=== PATIENT | female | born 1970 | race Caucasian/White ===

== ENCOUNTER 2017-09-03 12:49 | Inpatient (IN) ==
--- NOTE | 2017-09-03 13:09 | Anesthesia Evaluation PreOp ---
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 Other Medical History: Thyroid (hypo), Other (obesity) Anesthesia History: No Prior Anesthetic Complications, Past Anesthesia (appy, thyroid,laparotomy, lumbar microdisc, brian, hernia, left partial knee) Alcohol Use: none Drug use: none Medications and Allergies Albuterol Sulfate [Albuterol Inhaler] 2 puff IH Q4HR PRN 03/19/15 [History] Amlodipine [Norvasc] 10 mg PO DAILY 03/19/15 [History] Aspirin 325 mg PO DAILY 03/19/15 [History] CloNIDine HCl 0.1 mg PO TID PRN 03/19/15 [History] HydrOXYzine 25 mg PO TID PRN 03/19/15 [History] Levothyroxine [Synthroid] 125 mcg PO DAILY 03/19/15 [History] Losartan/Hydrochlorothiazide [Hyzaar 100-25 Tablet] 1 each PO DAILY 03/19/15 [ History] Metoprolol XL (24 HR) Succ [Toprol Xl] 100 mg PO DAILY 03/19/15 [History] Nitroglycerin 0.4 mg SL Q5MIN PRN 03/19/15 [History] Potassium Chloride 20 meq PO DAILY 03/19/15 [History] Sertraline [Zoloft] 100 mg PO DAILY 03/19/15 [History] Fluticasone Propionate Nasal [Flonase] 50 mcg NS DAILY 10/15/15 [History] Atorvastatin [Lipitor] 40 mg PO DAILY 02/20/16 [History] Furosemide [Lasix] 20 mg PO DAILY PRN 02/20/16 [History] Loperamide [Imodium] 2 mg PO Q6H PRN 02/20/16 [History] Medroxyprogesterone Acetate [Depo-Provera] 150 mg IM Q3M 02/20/16 [History] Meloxicam [Mobic] 15 mg PO DAILY 02/20/16 [History] Triamterene/HCTZ 37.5/25mg [Dyazide] 1 each PO DAILY 02/20/16 [History] HYDROcodone/Acet 5/325 mg [[place] 5-325 mg] 1 tab PO Q4HR PRN #60 tablet [Rx] 3 Allergy/AdvReac Type Severity Reaction Status Date / Time Sulfa (Sulfonamide Allergy Intermediate Hives Verified 08/31/17 10:07 Antibiotics) promethazine [From Phenergan] AdvReac Severe Vomiting Verified 08/31/17 10:07 Cefaclor [From Ceclor] AdvReac Mild Hives Verified 08/31/17 10:07 Oxycodone AdvReac Hallucinati Verified 08/31/17 10:07 ng - Meds/Allergy Pre-op Review Medications Reviewed: Yes Allergies Reviewed: Yes Beta Blockers on Current Med List: No Anesthesia Results - Imaging EKG: report reviewed (SINUS RHYTHM MODERATE T-WAVE ABNORMALITY, CONSIDER LATERAL ISCHEMIA) Additional studies: mpression: Pharmacologic stress ECG is non diagnostic for ischemia due to failure to reach target heartrate. However, there were diffuse T wave inversions noted during stress and mild ST segment depression in the inferior leads during recovery. Gated EF = 58%. Perfusion imaging was negative for ischemia or infarct. Anesthesia Exam Weight: 96kg BMI 35 NPO (# of Hours): 8 - HEENT Pupil (Motor): EOMI Mallampati: II Teeth: Edentulous Oral Opening: Greater than 3 - GENERATOR WORKER LOC: Oriented GENERATOR WORKER Motor: Normal RUE, Normal LUE, Normal RLE, Normal LLE, Normal Face GENERATOR WORKER Sensory: Normal: RUE, LUE, RLE, LLE, Face - Cardiac Rhythm: Regular Murmur: None - Pulmonary Breath Sounds: bilateral Clear Respiratory Effort: Symmetrical Anesthesia Assess/Plan ASA Score: 2 Modified Jose Scale for Level of Consciousness: Cooperative, oriented, and tranquil Anesthetic Plan: Regional, MAC Monitoring Plan: Standard Monitors Recovery Plan: PACU (agrees to SAB with MAC and block)
[2017-09-03] MEDS ORDERED: CeFAZolin Syr 2,000MG/20 ML 2,000 MG/20 ML SYRINGE IVPB ONE (13:29)
[2017-09-03] MEDS ORDERED: Plasma-Lyte A (PH 7.4) 1,000 ML IVC SCH (13:30)
--- NOTE | 2017-09-03 13:36 | History & Physical Report ---
Date of Encounter: 09/03/17 Time of Encounter: 13:35 24 Hour HP Update - Instructions Instructions: If the History and Physical is less than 30 days old and was completed prior to A.M. admission and or procedure and has NOT been updated on calendar day of procedure please complete this update prior to performing procedure. - Update Patient reports changes in Medical Condition: No Changes in examination, assessment, or condition: No Changes in Medication: No Preop tests/diagnostics Reviewed: Yes Surgery Remains Indicated: Yes Consent for Planned Operative Procedure(s) Verified: Yes - Pre-Operative Checklist Preoperative Checklist Indicated: No Prophylactic Antibiotic Ordered: Yes Is VTE Prophylaxis Indicated?: Yes
[2017-09-03] MEDS ORDERED: *HR* Ropivacaine/PF 0.5% 20 ML VIAL ONE (13:50)
[2017-09-03] MEDS ORDERED: Ethanol\\Acetic Acid\\Na Ace\\Ben 1,000 ML IRRIG.SOLN IR ONE (14:00)
[2017-09-03] MEDS ORDERED: Propofol 500 MG/50 ML INFUS..BTL ONE (14:05)
[2017-09-03] MEDS ORDERED: *HR* Morphine Sulfate/PF 10 MG/10 ML AMPUL ONE (14:07)
[2017-09-03] MEDS ORDERED: *HR* FentaNYL (PF) 100 MCG/2 ML VIAL ONE ×2 (14:40)
[2017-09-03] MEDS ORDERED: *HR* EPINEPHrine 1 MG/ML AMPUL ONE (14:40)
[2017-09-03] MEDS ORDERED: *HR* Midazolam HCl 2 MG/2 ML VIAL ONE (14:40)
--- NOTE | 2017-09-03 14:49 | Anesthesia Procedures ---
Date of Encounter: 09/03/17 Time of Encounter: 14:46 Procedures: Anesthesia - Nerve Block Procedure Date: 09/03/17 Time: 14:00 Allergies/Adv Reactions: sulfa antibiotics, promethazine, cefaclor, oxycodone Pre-op Diagnosis: L knee arthritis Surgical Procedure: L TKA, revision from unicondylar to total Checklist: Correct Patient Identifier, Correct procedure, History checked Correct side: Left Blood Thinner: No Monitor Applied: EKG, BP, Pulse Oximetry Supplemental Oxygen via Nasal Cannula (L/min): 3 Sedation: Versed (mg): 2 Sedation: Fentanyl (mcg): 100 Indication: Post Op Analgesia Pre-op Neuro Deficits: No Block Type: Femoral Catheter placed: No Sterile Technique: Yes Ultrasound used: Yes Anatomy identified: Yes Visual spread of Local: Yes Neuro Stimulation: Yes Nerve Stimulator Range: 0.2 - 0.4 mA Blood on Needle Aspiration: No Smooth Injection of Local: Yes Pain with Injection of Local: No Prep: Chlorhexadine Needle: 21 x 100 mm Stimuplex Local: Ropivacaine (30mL of 0.5% ropivicaine + 8mg dexamethasone) Number of Attempts: 1 Complications: None/effective block Vitals: please see Mariana BROWN's electronic records for VS entry
--- NOTE | 2017-09-03 14:49 | Discharge Summary ---
Date of Encounter: 09/04/17 Time of Encounter: 06:40 - Discharge Diagnosis (1) Asthma Priority: Secondary Status: Chronic Qualifiers: Asthma severity: unspecified severity Asthma persistence: unspecified Asthma complication type: unspecified Qualified Code(s): J45.909 - Unspecified asthma, uncomplicated (2) Hyperlipidemia Priority: Secondary Status: Chronic Qualifiers: Hyperlipidemia type: unspecified Qualified Code(s): E78.5 - Hyperlipidemia , unspecified (3) Painful orthopaedic hardware Priority: Primary Status: Chronic (4) Status post revision of total replacement of left knee Priority: Primary Status: Acute (5) Hypertension Priority: Secondary Status: Chronic Qualifiers: Hypertension type: unspecified Qualified Code(s): I10 - Essential (primary ) hypertension - Discharge Medications Home Medications: Albuterol Sulfate [Albuterol Inhaler] 2 puff IH Q4HR PRN 03/19/15 [History] Aspirin 325 mg PO DAILY 03/19/15 [History] CloNIDine HCl 0.1 mg PO TID PRN 03/19/15 [History] HydrOXYzine 25 mg PO TID PRN 03/19/15 [History] Levothyroxine [Synthroid] 125 mcg PO DAILY 03/19/15 [History] Losartan/Hydrochlorothiazide [Hyzaar 100-25 Tablet] 1 each PO DAILY 03/19/15 [ History] Nitroglycerin 0.4 mg SL Q5MIN PRN 03/19/15 [History] Potassium Chloride 20 meq PO DAILY 03/19/15 [History] Sertraline [Zoloft] 100 mg PO DAILY 03/19/15 [History] Fluticasone Propionate Nasal [Flonase] 50 mcg NS DAILY 10/15/15 [History] Atorvastatin [Lipitor] 40 mg PO DAILY 02/20/16 [History] Furosemide [Lasix] 20 mg PO DAILY PRN 02/20/16 [History] Loperamide [Imodium] 2 mg PO Q6H PRN 02/20/16 [History] Medroxyprogesterone Acetate [Depo-Provera] 150 mg IM Q3M 02/20/16 [History] Triamterene/HCTZ 37.5/25mg [Dyazide] 1 each PO DAILY 02/20/16 [History] Amlodipine Besylate 10 mg PO DAILY 09/03/17 [History] Aspirin Enteric Coated [Aspirin EC] 325 mg PO BID #20 tablet. 09/03/17 [Rx] CloNIDine Patch [Catapres-Tts] 0.1 mg TD TH 09/03/17 [History] Fesoterodine Fumarate [Toviaz] 8 mg PO DAILY 09/03/17 [History] HYDROcodone/Acet 5/325 mg [[place] 5-325 mg] 1 tab PO Q6H PRN 5 Days #20 tab 09/03 [Rx] Loratadine [Allergy Relief] 10 mg PO DAILY 09/03/17 [History] Metoprolol Succinate [Toprol Xl] 100 mg PO DAILY 09/03/17 [History] Montelukast [Singulair] 10 mg PO HS 09/03/17 [History] Naproxen [Naprosyn] 500 mg PO Q12H 09/03/17 [History] Oxybutynin Chloride [Ditropan Xl] 15 mg PO DAILY 09/03/17 [History] SUMAtriptan Succinate [Imitrex] 100 mg PO Q2H PRN 09/03/17 [History] Allergies/Adverse Reactions: 3 Allergy/AdvReac Type Severity Reaction Status Date / Time Sulfa (Sulfonamide Allergy Intermediate Hives Verified 08/31/17 10:07 Antibiotics) promethazine [From Phenergan] AdvReac Severe Vomiting Verified 08/31/17 10:07 Cefaclor [From Ceclor] AdvReac Mild Hives Verified 08/31/17 10:07 Oxycodone AdvReac Hallucinati Verified 08/31/17 10:07 ng Primary care physician: Iram Maldonado - Patient Status Disposition: Home, Self-Care Condition: Good Functional capacity at discharge: uses cane/walker Overall status at discharge: patient is progressing back to baseline - Discharge Instructions Follow Up With: Iram Maldonado MD [Primary Care Provider] - 10/20/17 1:00 pm - Hospital Course Hospital course: Ms. Contreras is a 47 year old female post revision left total knee The patient had an uneventful postoperative course. They received antibiotics and physical therapy and were discharged in stable condition. There will follow -up in the office in 2 weeks. - Time Spent with Patient Total time spent providing and/or coordinating discharge services:
--- NOTE | 2017-09-03 14:54 | Anesthesia Procedures ---
Date of Encounter: 09/03/17 Time of Encounter: 14:52 Procedures: Anesthesia - Epidural/Spinal Patient ID/Chart reviewed: Yes Patient examined: Yes Consent Obtained: Yes Supplemental Oxygen: None/Room Air Site Prep: Aseptic Technique, Sterile prep and drape, Povidone-Iodine 1% Patient position: upright Local Anesthetic: Lidocaine 1% (0.2mL ID injection) Interspace Used: L3-L4 Loss of Resistance (NEHEMIAH): No Blood: No CSF: Yes Paresthesia: Yes (transient RLE) Spinal Needle Gauge: 25 (3.5G pencan needle) Spinal Dose: 250mcg PF morphine + 15mcg fentanyl + 1.4mL 0.75% Procedure: successful x 1 attempt Vitals + FHT's: please see Mariana BROWN's electronic records for VS entry
[2017-09-03] MEDS ORDERED: Naloxone 0.4 MG/ML INJ IVP PRN ×2 (14:57→16:54)
[2017-09-03] MEDS ORDERED: Ondansetron 4 MG/2 ML VIAL ONE (15:13)
--- NOTE | 2017-09-03 15:50 | Orthopedic Operative Note ---
Date of procedure: 09/03/17 Pre-op diagnosis: Left knee arthritis painful unicondylar Post-op diagnosis: same Procedure: Procedure: Left Removal of unicondylar knee replacement right revision total knee replacement Estimated blood loss: 200 cc Hardware: Arthrex metal and plastic replacement: Femur 3, tibia: 4, poly-: PS 13 , patella: 34 Exam Under anesthesia: Full range of motion and no gross instability. Procedural Notes: Grade 4 arthritic changes patellofemoral joint grade 3 lateral compartment. Operative procedure: The patient was brought to the operating room and placed on the operating room table. After general anesthesia was administered the operative knee was examined. Findings were noted in the exam under anesthesia. The operative extremity was prepped and draped in sterile surgical fashion. The patient received IV antibiotics prior to skin incision. A standard midline incision was made centered over the patella. The incision was made through the skin and subcutaneous tissue. It incorporated the old incision. A medial parapatellar tendon approach was performed. Care was taken to preserve tissue along the medial aspect of the patella. And to protect the patella tendon. The deep MCL was released off the medial tibia. The infra patella fat pad was excised. Cultures were obtained. The knee was brought into flexion patient does have grade 3 changes lateral compartment grade 4 changes patellofemoral joint, the poly-was removed, the interface between the patient's femoral component and distal femur were disrupted with a osteotome and oscillating saw. Femoral component was removed removed without significant bone loss. Attention was then turned to the tibial component. The same technique was used to remove the tibial component by disrupting the interface between the patient's tibial component and the patients proximal tibia. The entry holes made for intramedullary femoral guide guide was seated in 5 degrees of valgus distal cut was made. ACL PCL lateral meniscus were removed and the entry hole was made for the intramedullary tibial guide guide was seated to resect at the level of the medial cut. The knee was brought into flexion femur sized to a size 3 cutting guide was seated anterior cut was made followed by the posterior condylar cuts followed by chamfer cuts. The finishing block was seated box cut was made lug holes drilled. Tibia was subluxed out sized to a size 4 for tray was seated in appropriate position prepared with the large drill followed by the fin cutter trial reduction revealed full extension no varus valgus instability with a 13 PS [place]. The patella was everted patella cut was made all the insertions of the quadriceps and patella tendon patella sized to 34, 34 guide was seated lug holes are drilled. The trial components were removed. The knee is irrigated with pulse irrigation. Sat for 1 minute with an antibacterial solution. Tibia cemented first followed by the femur the #16 PS [place] was seated and secured used for into extension patella was cemented and held in place with patellar holding clamp. After the cement hardened the knee was irrigated out again after it sat for 1 minute with an antibacterial solution. The extensor mechanism was closed with a running #2 Fiberwire suture and a running #2 PDS suture. The deep tissue was irrigated and closed deep with #1 PDS suture superficially with 0 PDS suture. The skin was closed with skin carlos. The patient was placed in a sterile dressing and postoperative brace. They were extubated and transferred to recovery room in stable condition. Anesthesia: spinal Surgeon: Ramesh Ochoa Was there an operator/assistant foreman present: No Estimated blood loss (cc): 200 Condition: stable Disposition: PACU
[2017-09-03 16:23] LABS: Hematocrit 37.8 % (35.3-44.9); Hemoglobin 12.1 g/dL (11.5-15.4)
--- NOTE | 2017-09-03 16:52 | Anesthesia Evaluation Post Op ---
Date of Encounter: 09/03/17 Time of Encounter: 16:52 - Vital Signs Vital Signs: Last Vital Signs Temp 96.5 F L 09/03/17 16:42 Pulse 65 09/03/17 16:42 Resp 18 09/03/17 16:42 BP 128/95 09/03/17 16:42 Pulse Ox 98 09/03/17 16:42 - Lungs Lungs: Clear Ascult./Percussion - Airway Airway: Non-obstructed - Cardiovascular Regular Rate - Mental Status Mental Status: Alert & Oriented, Answers Appropriately - Pain Pain Scale: 1 - Nausea Vomiting Nausea Vomiting: Not Present - Hydration Hydration: Ice chips - Discharge PostOp Status: Transfer Patient to floor
[2017-09-03] MEDS ORDERED: SUMAtriptan succinate 50 MG TABLET PO PRN (16:54)
[2017-09-03] MEDS ORDERED: Ringers Solution, Lactated 1,000 ML IVC SCH (16:54)
[2017-09-03] MEDS ORDERED: Ondansetron 4 MG/2 ML VIAL IVP PRN (16:54)
[2017-09-03] MEDS ORDERED: MOM Conc 10 ML UD.LIQ PO PRN (16:54)
[2017-09-03] MEDS ORDERED: Sennosides 8.6 MG TABLET PO PRN (16:54)
[2017-09-03] MEDS ORDERED: CloNIDine Patch 0.1 MG PATCH (WEEKLY) TD SCH (16:54)
[2017-09-03] MEDS ORDERED: Temazepam 15 MG CAPSULE PO PRN (16:54)
[2017-09-03] MEDS ORDERED: hydrOXYzine pamoate 25 MG CAPSULE PO PRN (16:54)
[2017-09-03] MEDS ORDERED: cloNIDine HCl 0.1 MG TABLET PO PRN (16:54)
[2017-09-03] MEDS ORDERED: Nitroglycerin 0.4 MG TAB.SUBL SL PRN (16:54)
[2017-09-03] MEDS ORDERED: Furosemide 20 MG TABLET PO PRN (16:54)
[2017-09-03] MEDS ORDERED: Ibuprofen 400 MG TABLET PO PRN (17:26)
[2017-09-03] MEDS: *HR* Enoxaparin 30 MG/0.3 ML SYRINGE SQ SCH (17:59)
[2017-09-03] MEDS ORDERED: *HR* Enoxaparin 30 MG/0.3 ML SYRINGE SQ SCH (18:00)
[2017-09-03] MEDS: CeFAZolin Premix DUPLEX 2,000 MG/50 ML BAG IVPB SCH (22:32)
[2017-09-04 04:14] LABS: Hematocrit 34.7 % (35.3-44.9); Hemoglobin 11.5 g/dL (11.5-15.4)
[2017-09-04 04:47] LABS: BUN/Creatinine Ratio 18 (6-26); Blood Urea Nitrogen 14 mg/dL (6-20); Calcium 8.6 mg/dL (8.6-10.3); Carbon Dioxide 25 mEq/L (23-29); Chloride 105 mEq/L (98-107); Glucose 153 mg/dL (70-105); Osmolality,Calculated 286 (280-300); Potassium 4.3 mEq/L (3.5-5.1); Sodium 136 mEq/L (136-145); eGFR For African Americans > 60 (> 60); eGFR For Non-African Americans > 60 (> 60)
[2017-09-04] MEDS: CeFAZolin Premix DUPLEX 2,000 MG/50 ML BAG IVPB SCH (06:11)
[2017-09-04] MEDS: *HR* Enoxaparin 30 MG/0.3 ML SYRINGE SQ SCH (06:11)
[2017-09-04] MEDS ORDERED: Levothyroxine Sodium 125 MCG TABLET PO SCH (06:30)
--- NOTE | 2017-09-04 06:42 | Orthopedics Progress Note ---
Date of Encounter: 09/04/17 Time of Encounter: 06:41 - Assessment and Plan (1) Asthma Current Visit: Yes Status: Chronic Qualifiers: Asthma severity: unspecified severity Asthma persistence: unspecified Asthma complication type: unspecified Qualified Code(s): J45.909 - Unspecified asthma, uncomplicated (2) Hyperlipidemia Current Visit: Yes Status: Chronic Qualifiers: Hyperlipidemia type: unspecified Qualified Code(s): E78.5 - Hyperlipidemia , unspecified (3) Painful orthopaedic hardware Current Visit: Yes Status: Chronic (4) Status post revision of total replacement of left knee Current Visit: Yes Status: Acute (5) Hypertension Current Visit: No Status: Chronic Qualifiers: Hypertension type: unspecified Qualified Code(s): I10 - Essential (primary ) hypertension Subjective Interval history: Patient was seen this morning doing well without complaints. Afebrile vital signs stable. Operative extremity: Neurovascularly intact Dressing clean dry and intact Calves nontender Assessment and plan: Continue with postoperative care Hematocrit 34 discharged today Objective Vital signs: Vital Signs Temp Pulse Resp BP Pulse Ox 09/04/17 05:23 97.1 F L 88 15 132/83 94 09/04/17 00:00 97.7 F 77 16 136/77 94 09/03/17 20:00 98.3 F 78 20 144/87 97 09/03/17 19:51 97.7 F 82 17 130/82 96 09/03/17 19:00 14 95 09/03/17 18:34 95 09/03/17 18:02 97.7 F 77 14 115/72 94 09/03/17 16:42 96.5 F L 65 18 128/95 98 09/03/17 16:30 57 12 131/88 96 09/03/17 16:20 97.5 F L 55 12 131/79 96 09/03/17 16:10 55 12 131/84 95 09/03/17 16:00 55 12 140/87 97 09/03/17 15:50 97.2 F L 66 13 142/91 99 09/03/17 14:33 68 14 139/94 98 09/03/17 14:30 68 14 144/95 94 09/03/17 14:05 79 16 134/86 97 09/03/17 13:54 75 17 151/89 99 09/03/17 13:34 98.4 F 85 18 166/107 95 09/03/17 13:07 98.4 F 85 18 166/107 95 Intake and Output 09/03/17 09/03/17 09/04/17 15:59 23:59 07:59 Intake Total 50 / 50 Output Total 200 / 200 300 / 300 Balance -200 / -200 50 / 50 -300 / -300 Intake: IV Fluids 50 / 50 Ancef Premix DUPLEX 2,000 mg In 50 / 50 50 ml @ 100 mls/hr IVPB Q8H [facility] Rx#:[id number] Output: Urine 300 / 300 Estimated Blood Loss 200 / 200 Other: Weight 96.162 kg - Labs CBC & BMP: 09/04/17 03:10 09/04/17 03:10 Labs: Abnormal lab results Hct 34.7 % (35.3-44.9) L 09/04/17 03:10 Glucose 153 mg/dL (70-105) H 09/04/17 03:10 - VTE Documentation of Mechanical Device: Venous foot pump, device Consult Discharge Plan - Plan Referrals: Iram Maldonado MD [Primary Care Provider] - 10/20/17 1:00 pm
[2017-09-04] MEDS ORDERED: Aspirin 325 MG TABLET PO SCH (09:00)
[2017-09-04] MEDS ORDERED: amLODIPine 5 MG TABLET PO SCH (09:00)
[2017-09-04] MEDS ORDERED: Metoprolol XL (24 HR) Succ 50 MG TAB.ER.24H PO SCH (09:00)
[2017-09-04] MEDS ORDERED: Loratadine 10 MG TABLET PO SCH (09:00)
[2017-09-04] MEDS ORDERED: FESOTERODINE FUMARATE 8 MG PO SCH (09:00)
[2017-09-04] MEDS ORDERED: Fluticasone Propionate Nasal 50 MCG/SPRAY BOTTLE NS SCH (09:00)
[2017-09-04] MEDS ORDERED: Losartan/HCTZ 50-12.5 TABLET PO SCH (09:00)
[2017-09-04 11:25] VITALS: BP 115/70
--- NOTE | 2017-09-04 11:52 | Event Note ---
Date of Encounter: 09/04/17 Time of Encounter: 12:15 PCR- POD#1 Left Removal of unicondylar knee replacement right revision total knee replacement 09/03/17 PCR - Patient seen at bedside with no concerns. minimal drainage on dressing. Pain control: Adequate Participating in PT. All questions and concerns addressed. Educated on use of incentive spirometer, ambulation, and hydration. Patient educated on post-operative restrictions and care. Addressed: see above. D/C plan: Plan to DC today with home therapy.
--- NOTE | 2017-09-04 13:00 | Physician Discharge Referral ---
Home Health/Hosp Referral Info Transfer to: Home Health Attending Provider: Dr. Ochoa - Diagnosis (1) Herniated lumbar intervertebral disc Priority: Secondary Status: Chronic (2) Lumbar radiculopathy Priority: Secondary Status: Chronic (3) Hypertension Priority: Secondary Status: Chronic (4) Asthma Priority: Secondary Status: Chronic (5) Hyperlipidemia Priority: Secondary Status: Chronic (6) Painful orthopaedic hardware Priority: Secondary Status: Chronic (7) Status post revision of total replacement of left knee Priority: Primary Status: Acute - Respiratory Orders Smoking Cessation: Smoking cessation has been advised. For more information, call the [place] Tobacco Quit Line at 0-893-EFWG-NOW. - Diet/Nutrition Diet/Nutrition Orders: Regular - Activity Activity Orders: Ambulate - Services Needed Following services are medically necessary services: Physical Therapy, Occupational Therapy - Transfer Medications Home Medications: Albuterol Sulfate [Albuterol Inhaler] 2 puff IH Q4HR PRN 03/19/15 [History] Aspirin 325 mg PO DAILY 03/19/15 [History] CloNIDine HCl 0.1 mg PO TID PRN 03/19/15 [History] HydrOXYzine 25 mg PO TID PRN 03/19/15 [History] Levothyroxine [Synthroid] 125 mcg PO DAILY 03/19/15 [History] Losartan/Hydrochlorothiazide [Hyzaar 100-25 Tablet] 1 each PO DAILY 03/19/15 [ History] Nitroglycerin 0.4 mg SL Q5MIN PRN 03/19/15 [History] Potassium Chloride 20 meq PO DAILY 03/19/15 [History] Sertraline [Zoloft] 100 mg PO DAILY 03/19/15 [History] Fluticasone Propionate Nasal [Flonase] 50 mcg NS DAILY 10/15/15 [History] Atorvastatin [Lipitor] 40 mg PO DAILY 02/20/16 [History] Furosemide [Lasix] 20 mg PO DAILY PRN 02/20/16 [History] Loperamide [Imodium] 2 mg PO Q6H PRN 02/20/16 [History] Medroxyprogesterone Acetate [Depo-Provera] 150 mg IM Q3M 02/20/16 [History] Triamterene/HCTZ 37.5/25mg [Dyazide] 1 each PO DAILY 02/20/16 [History] Amlodipine Besylate 10 mg PO DAILY 09/03/17 [History] Aspirin Enteric Coated [Aspirin EC] 325 mg PO BID #20 tablet.dr 09/03/17 [Rx] CloNIDine Patch [Catapres-Tts] 0.1 mg TD TH 09/03/17 [History] Fesoterodine Fumarate [Toviaz] 8 mg PO DAILY 09/03/17 [History] HYDROcodone/Acet 5/325 mg [[place] 5-325 mg] 1 tab PO Q6H PRN 5 Days #20 tab 09/03 [Rx] Loratadine [Allergy Relief] 10 mg PO DAILY 09/03/17 [History] Metoprolol Succinate [Toprol Xl] 100 mg PO DAILY 09/03/17 [History] Montelukast [Singulair] 10 mg PO HS 09/03/17 [History] Naproxen [Naprosyn] 500 mg PO Q12H 09/03/17 [History] Oxybutynin Chloride [Ditropan Xl] 15 mg PO DAILY 09/03/17 [History] SUMAtriptan Succinate [Imitrex] 100 mg PO Q2H PRN 09/03/17 [History] Allergies/Adverse Reactions: 3 Allergy/AdvReac Type Severity Reaction Status Date / Time Sulfa (Sulfonamide Allergy Intermediate Hives Verified 08/31/17 10:07 Antibiotics) promethazine [From Phenergan] AdvReac Severe Vomiting Verified 08/31/17 10:07 Cefaclor [From Ceclor] AdvReac Mild Hives Verified 08/31/17 10:07 Oxycodone AdvReac Hallucinati Verified 08/31/17 10:07 ng Certification: Further, I certify that my clinical findings support that this patient is homebound (i.e. absences from home require considerable and taxing effort and are for medical reasons or buddhism services or infrequently or short duration when for other reasons) because: Homebound Reason: Post-surgery restriction and or conditions limit ability to leave home Attestation: My signature below is to certify that this patient is under my care and that I, or nurse practitioner, or a physician librarian assistant working with me, has a face-to- face encounter with this patient.
[2017-09-04] MEDS ORDERED: *HR* HYDROcodone/Acet 5/325 mg TABLET PO PRN (15:43)
[2017-09-04] MEDS ORDERED: *HR* HYDROcodone/Acet 10/325 mg TABLET PO PRN (15:43)
== END 2017-09-04 16:29 | disposition home or self-care (01) | DRG 302 ==
LOC: SAMDAY 12:49 → 3NENU 16:39
PROVIDERS: ADMIT Orthopaedic Surgery; ATTEND Orthopaedic Surgery

== ENCOUNTER 2020-08-15 09:32 | Inpatient (IN) ==
[~2020-08-15 09:32] MED LIST: Bacitracin 50,000 UNIT, Polymyxin B Sulfate 500,000 UNIT, Sodium Chloride IRRigation 1,... IR ONE
[2020-08-15] MEDS ORDERED: CeFAZolin Syr 2,000MG/20 ML 2,000 MG/20 ML SYRINGE IVPB ONE (09:57)
[2020-08-15] MEDS ORDERED: Ringers Solution, Lactated 1,000 ML IVC SCH (10:00)
[2020-08-15] MEDS ORDERED: *HR* HYDROcodone/Acet 5/325 mg TABLET PO PRN ×2 (10:40→16:14)
[2020-08-15] MEDS ORDERED: Ondansetron 4 MG/2 ML VIAL IVP PRN ×2 (10:40→16:14)
[2020-08-15] MEDS ORDERED: *HR* FentaNYL (PF) 100 MCG/2 ML VIAL ONE (11:25)
[2020-08-15] MEDS ORDERED: *HR* Midazolam HCl 2 MG/2 ML VIAL ONE (11:25)
[2020-08-15] MEDS ORDERED: *HR* Propofol 200 MG/20 ML VIAL IVP ONE ×2 (11:26→18:00)
[2020-08-15] MEDS ORDERED: Ondansetron 4 MG/2 ML VIAL ONE (11:28)
[2020-08-15] MEDS ORDERED: *HR* Succinylcholine 200 MG/10 ML VIAL IVP ONE ×2 (11:28→18:00)
[2020-08-15] MEDS ORDERED: Lidocaine HCL 4 ML Topical Solution (Laryng-O-Jet Kit Sterile Pak) TP ONE (11:28)
[2020-08-15] MEDS ORDERED: Lidocaine -MPF 2% 2 ML VIAL ONE (11:28)
[2020-08-15] MEDS ORDERED: *HR* Remifentanil 1 MG VIAL IVP ONE ×3 (11:32→14:28)
[2020-08-15] MEDS: *HR* HYDROmorphone PF 0.5 MG/0.5 ML SYRINGE IVP PRN ×4 (15:16→15:48)
[2020-08-15] MEDS ORDERED: *HR* Labetalol 20 MG/4 ML SYRINGE IVP ONE ×2 (15:35→15:36)
[2020-08-15] MEDS ORDERED: cloNIDine HCL 0.1 MG TABLET PO PRN (16:14)
[2020-08-15] MEDS ORDERED: Fluticasone Propionate Nasal 50 MCG/SPRAY BOTTLE NS PRN (16:14)
[2020-08-15] MEDS ORDERED: Nitroglycerin 0.4 MG TAB.SUBL SL PRN (16:14)
[2020-08-15] MEDS ORDERED: Acetaminophen 325 MG TABLET PO PRN (16:14)
[2020-08-15] MEDS ORDERED: Naloxone 0.4 MG/ML INJ IVP PRN (16:14)
[2020-08-15] MEDS ORDERED: hydrALAZINE 25 MG TABLET PO PRN (16:14)
[2020-08-15] MEDS ORDERED: SUMAtriptan succinate 50 MG TABLET PO PRN (16:14)
[2020-08-15] MEDS ORDERED: Ondansetron ODT 4 MG TAB.RAPDIS PO PRN (17:00)
[2020-08-15] MEDS: Ringers Solution, Lactated 1,000 ML IVC SCH (17:19)
[2020-08-15] MEDS: carvediloL 25 MG TABLET PO SCH (17:20)
[2020-08-15] MEDS ORDERED: *HR* Midazolam HCl 2 MG/2 ML VIAL IVP ONE (18:00)
[2020-08-15] MEDS ORDERED: *HR* FentaNYL (PF) 100 MCG/2 ML VIAL IVP ONE ×2 (20:02→20:15)
[2020-08-15] MEDS ORDERED: Artificial Tears SOLN 15 ML BOTTLE BOTH EYES PRN (20:24)
[2020-08-15] MEDS: FentaNYL (PF) 1,000 MCG/100 ML IV.SOLN IVC SCH (20:29)
[2020-08-15] MEDS: Pantoprazole 40 MG VIAL IVP SCH (20:38)
[2020-08-15] MEDS: Chlorhexidine Rinse 15 ML MOUTHWASH MM SCH (20:38)
[2020-08-15 22:03] LABS: Basophils % 0.1 %; Hematocrit 37.3 % (35.3-44.9); Hemoglobin 12.2 g/dL (11.5-15.4); Immature Granulocytes % 0.7 % (0-4); Lymphocytes # 0.3 K/mcL (0.6-4.6); Lymphocytes % 2.8 %; Mean Corpuscular HGB Conc 32.7 g/dL (31.6-35.5); Mean Corpuscular Hemoglobin 28.5 pg (28.0-33.3); Mean Corpuscular Volume 87.1 fL (83.0-100.0); Monocytes # 0.1 K/mcL (0.0-1.3); Monocytes % 0.9 %; Neutrophils # 9.8 K/mcL (1.6-8.9); Platelet Count 151 K/mcL (140-400); Red Blood Count 4.28 M/mcL (3.82-4.97); Segmented Neutrophils % 95.5 %; White Blood Count 10.3 K/mcL (4.3-11.1)
[2020-08-15 22:09] LABS: INR 1.2; Prothrombin Time 14.1 Seconds (9.4-12.1)
[2020-08-15 22:12] LABS: Activated Partial Thrombo Time 24.8 Seconds (26.0-36.0)
[2020-08-15 22:26] LABS: BUN/Creatinine Ratio 14 (6-26); Blood Urea Nitrogen 13 mg/dL (6-20); Calcium 8.9 mg/dL (8.6-10.3); Carbon Dioxide 26 mEq/L (23-29); Chloride 106 mEq/L (98-107); Glucose 143 mg/dL (70-105); Osmolality,Calculated 289 (280-300); Potassium 4.3 mEq/L (3.5-5.1); Sodium 138 mEq/L (136-145); eGFR For African Americans > 60 (> 60); eGFR For Non-African Americans > 60 (> 60)
[2020-08-15] MEDS: CeFAZolin 2 GM/120 ML BAG IVPB SCH (23:16)
[2020-08-15] MEDS: Artificial Tears SOLN 15 ML BOTTLE BOTH EYES SCH (23:18)
[2020-08-16] MEDS: Ringers Solution, Lactated 1,000 ML IVC SCH (02:23)
[2020-08-16] MEDS: Artificial Tears SOLN 15 ML BOTTLE BOTH EYES SCH ×5 (03:36→19:48)
[2020-08-16] MEDS: FentaNYL (PF) 1,000 MCG/100 ML IV.SOLN IVC SCH ×2 (03:37→18:18)
[2020-08-16 05:58] LABS: ABG Base Excess 0 mEq/L (-2 to 3); ABG HCO3 25 mEq/L (21-27); ABG Oxygen Saturation 96 % (95-98); ABG PCO2 42 mmHg (35-45); ABG PH 7.38 pH Units (7.32-7.45); ABG PO2 82 mmHg (85-104); ABG TCO2 26 mEq/L (20-26); Blood Gas VT 500 cc
[2020-08-16 06:02] LABS: VBG Ionized Calcium 0.91 mmol/L (1.15-1.35)
[2020-08-16] MEDS: Pantoprazole 40 MG VIAL IVP SCH (08:20)
[2020-08-16] MEDS: Chlorhexidine Rinse 15 ML MOUTHWASH MM SCH ×2 (08:21→19:48)
[2020-08-16] MEDS: carvediloL 25 MG TABLET PO SCH ×2 (08:36→16:03)
[2020-08-16] MEDS: Loratadine 10 MG TABLET PO SCH (08:37)
[2020-08-16] MEDS: amLODIPine 5 MG TABLET PO SCH (08:38)
[2020-08-16] MEDS ORDERED: Venlafaxine XR (24 HR) 75 MG CAP.ER.24H PO SCH (09:00)
[2020-08-16] MEDS ORDERED: Aspirin Enteric Coated 81 MG Tablet PO SCH (09:00)
[2020-08-16] MEDS ORDERED: BuPROPion XL (24 HR) 150 MG TABLET PO SCH (09:00)
[2020-08-16] MEDS: CeFAZolin 2 GM/120 ML BAG IVPB SCH (09:15)
[2020-08-16] MEDS: Calcium Gluconate 1gm/50mL 1 GM/50 ML BAG IVPB SCH ×3 (11:01→12:44)
[2020-08-16] MEDS ORDERED: CloNIDine Patch 0.2 MG PATCH (WEEKLY) TD SCH (15:15)
[2020-08-17] MEDS: Artificial Tears SOLN 15 ML BOTTLE BOTH EYES SCH ×7 (00:04→23:54)
[2020-08-17] MEDS: FentaNYL (PF) 1,000 MCG/100 ML IV.SOLN IVC SCH ×2 (03:11→12:29)
[2020-08-17 03:48] LABS: Hematocrit 35.7 % (35.3-44.9); Hemoglobin 11.3 g/dL (11.5-15.4); Mean Corpuscular HGB Conc 31.7 g/dL (31.6-35.5); Mean Corpuscular Hemoglobin 28.5 pg (28.0-33.3); Mean Corpuscular Volume 89.9 fL (83.0-100.0); Mean Platelet Volume 11.1 fL (9.4-12.4); Platelet Count 187 K/mcL (140-400); Red Blood Count 3.97 M/mcL (3.82-4.97); Red Cell Distribution Width 14.5 % (11.5-14.5); White Blood Count 12.2 K/mcL (4.3-11.1)
[2020-08-17 04:07] LABS: BUN/Creatinine Ratio 22 (6-26); Blood Urea Nitrogen 21 mg/dL (6-20); Calcium 8.8 mg/dL (8.6-10.3); Carbon Dioxide 25 mEq/L (23-29); Chloride 106 mEq/L (98-107); Glucose 142 mg/dL (70-105); Magnesium 2.2 mg/dL (1.6-2.6); Osmolality,Calculated 293 (280-300); Phosphorous 5.8 mg/dL (2.7-4.5); Potassium 4.7 mEq/L (3.5-5.1); Sodium 139 mEq/L (136-145); eGFR For African Americans > 60 (> 60); eGFR For Non-African Americans > 60 (> 60)
[2020-08-17 04:14] LABS: ABG Base Excess 0 mEq/L (-2 to 3); ABG HCO3 27 mEq/L (21-27); ABG Oxygen Saturation 95 % (95-98); ABG PCO2 53 mmHg (35-45); ABG PH 7.31 pH Units (7.32-7.45); ABG PO2 83 mmHg (85-104); ABG TCO2 29 mEq/L (20-26); Blood Gas Modality ASSIST CONTROL; Blood Gas VT 450 cc
[2020-08-17] MEDS: carvediloL 25 MG TABLET PO SCH ×2 (08:48→18:24)
[2020-08-17] MEDS: amLODIPine 5 MG TABLET PO SCH (08:49)
[2020-08-17] MEDS: Loratadine 10 MG TABLET PO SCH (08:49)
[2020-08-17] MEDS ORDERED: Aspirin 81 MG TAB.CHEW GTUBE SCH (09:00)
[2020-08-17] MEDS: Pantoprazole 40 MG VIAL IVP SCH (09:19)
[2020-08-17] MEDS: Chlorhexidine Rinse 15 ML MOUTHWASH MM SCH ×2 (09:19→20:19)
[2020-08-17] MEDS ORDERED: *HR* Metoprolol 5 MG/5 ML VIAL IVP ONE (12:51)
[2020-08-17] MEDS ORDERED: *HR* Labetalol 20 MG/4 ML SYRINGE IVP PRN ×2 (13:20→19:06)
[2020-08-17] MEDS ORDERED: Tetracaine/Benzocaine/Butamben 1 SPRAY AEROSOL MM ONE (13:46)
[2020-08-17] MEDS ORDERED: E-Z-PAQUE (BARIUM SULF) SUSP 1 BOTTLE PO ONE (15:54)
[2020-08-17] MEDS ORDERED: E-Z-HD (BARIUM SULF) SUSPENSION PO ONE (15:54)
[2020-08-17] MEDS ORDERED: Barium Sulfate 1 TAB TABLET PO ONE (16:16)
[2020-08-17] MEDS ORDERED: Fluticasone Propionate Nasal 50 MCG/SPRAY BOTTLE NS PRN (19:06)
[2020-08-17] MEDS ORDERED: Artificial Tears SOLN 15 ML BOTTLE BOTH EYES PRN (19:06)
[2020-08-17] MEDS ORDERED: Naloxone 0.4 MG/ML INJ IVP PRN (19:06)
[2020-08-17] MEDS ORDERED: Acetaminophen 325 MG TABLET PO PRN (19:06)
[2020-08-17] MEDS ORDERED: *HR* HYDROcodone/Acet 5/325 mg TABLET PO PRN (19:06)
[2020-08-17] MEDS ORDERED: Nitroglycerin 0.4 MG TAB.SUBL SL PRN (19:06)
[2020-08-18] MEDS: Artificial Tears SOLN 15 ML BOTTLE BOTH EYES SCH ×5 (05:10→20:22)
[2020-08-18] MEDS: Ringers Solution, Lactated 1,000 ML IVC SCH (08:01)
[2020-08-18] MEDS: carvediloL 25 MG TABLET PO SCH ×2 (11:52→17:39)
[2020-08-18] MEDS: Pantoprazole 40 MG VIAL IVP SCH (11:52)
[2020-08-18] MEDS: Chlorhexidine Rinse 15 ML MOUTHWASH MM SCH ×2 (11:57→20:22)
[2020-08-18] MEDS: amLODIPine 5 MG TABLET PO SCH (11:58)
[2020-08-18] MEDS: Aspirin 81 MG TAB.CHEW GTUBE SCH (11:58)
[2020-08-18] MEDS: Loratadine 10 MG TABLET PO SCH (11:59)
[2020-08-18] MEDS: Ondansetron ODT 4 MG TAB.RAPDIS PO PRN ×2 (12:23→20:24)
[2020-08-18] MEDS: hydrALAZINE 25 MG TABLET PO PRN (17:40)
[2020-08-19] MEDS: Artificial Tears SOLN 15 ML BOTTLE BOTH EYES SCH ×6 (00:10→19:41)
[2020-08-19] MEDS: hydrALAZINE 25 MG TABLET PO PRN ×2 (05:01→23:01)
[2020-08-19 07:23] LABS: Basophils % 0.2 %; Eosinophils # 0.1 K/mcL (0.0-0.6); Eosinophils % 1.4 %; Hematocrit 35.7 % (35.3-44.9); Hemoglobin 11.5 g/dL (11.5-15.4); Immature Granulocytes % 0.5 % (0-4); Lymphocytes # 0.9 K/mcL (0.6-4.6); Lymphocytes % 10.9 %; Mean Corpuscular HGB Conc 32.2 g/dL (31.6-35.5); Mean Corpuscular Hemoglobin 28.7 pg (28.0-33.3); Mean Platelet Volume 11.2 fL (9.4-12.4); Monocytes # 0.4 K/mcL (0.0-1.3); Monocytes % 5.4 %; Neutrophils # 6.6 K/mcL (1.6-8.9); Platelet Count 150 K/mcL (140-400); Red Blood Count 4.01 M/mcL (3.82-4.97); Red Cell Distribution Width 14.3 % (11.5-14.5); Segmented Neutrophils % 81.6 %; White Blood Count 8.1 K/mcL (4.3-11.1)
[2020-08-19 07:44] LABS: BUN/Creatinine Ratio 36 (6-26); Blood Urea Nitrogen 27 mg/dL (6-20); Calcium 8.7 mg/dL (8.6-10.3); Carbon Dioxide 24 mEq/L (23-29); Chloride 107 mEq/L (98-107); Glucose 84 mg/dL (70-105); Osmolality,Calculated 294 (280-300); Potassium 3.8 mEq/L (3.5-5.1); Sodium 140 mEq/L (136-145); eGFR For African Americans > 60 (> 60); eGFR For Non-African Americans > 60 (> 60)
[2020-08-19] MEDS: amLODIPine 5 MG TABLET PO SCH (08:37)
[2020-08-19] MEDS: Chlorhexidine Rinse 15 ML MOUTHWASH MM SCH ×2 (08:37→19:42)
[2020-08-19] MEDS: Pantoprazole 40 MG VIAL IVP SCH (08:37)
[2020-08-19] MEDS: Loratadine 10 MG TABLET PO SCH (08:38)
[2020-08-19] MEDS: Aspirin 81 MG TAB.CHEW GTUBE SCH (08:38)
[2020-08-19] MEDS: carvediloL 25 MG TABLET PO SCH (17:08)
[2020-08-19] MEDS: *HR* Heparin 5,000 UNIT/ML VIAL SQ SCH (17:08)
[2020-08-20] MEDS: Artificial Tears SOLN 15 ML BOTTLE BOTH EYES SCH ×4 (03:06→11:19)
[2020-08-20] MEDS: *HR* Heparin 5,000 UNIT/ML VIAL SQ SCH (05:48)
[2020-08-20] MEDS: amLODIPine 5 MG TABLET PO SCH (07:23)
[2020-08-20] MEDS: carvediloL 25 MG TABLET PO SCH ×2 (07:24→08:38)
[2020-08-20] MEDS: Aspirin 81 MG TAB.CHEW GTUBE SCH (07:24)
[2020-08-20] MEDS: Loratadine 10 MG TABLET PO SCH (07:24)
[2020-08-20] MEDS: Pantoprazole 40 MG VIAL IVP SCH (07:24)
[2020-08-20] MEDS: Chlorhexidine Rinse 15 ML MOUTHWASH MM SCH (07:24)
[2020-08-20 10:12] VITALS: BP 145/78
[2020-08-23] MEDS ORDERED: CloNIDine Patch 0.3 MG PATCH (WEEKLY) TD SCH (09:00)
[2020-08-23] MEDS ORDERED: CloNIDine Patch 0.2 MG PATCH (WEEKLY) TD SCH (09:00)
== END 2020-08-20 13:26 | disposition home health service (06) | DRG 471 ==
LOC: SAMDAY 09:32 → 3NENU 16:11 → ICNU 20:06 → SUATTDRO 08-16 18:02 → 3ANU 08-17 18:52
PROVIDERS: ADMIT Orthopaedic Surgery Orthopaedic Surgery of the Spine; ATTEND Internal Medicine